=== PATIENT | male | born 1950 | race Hispanic/Latino ===

== ENCOUNTER 2017-03-16 10:52 | Emergency (ER) | payer MEDICARE, BC ==
[2017-03-16 11:03] VITALS: BP 158/84; PULSE 83; RESP 20; TEMP 98.4; O2SAT 98
--- NOTE | 2017-03-16 11:13 | ED PDOC ---
HPI: General Adult Time Seen by Provider: 03/16/17 11:11 Chief Complaint (Nursing): Upper Extremity Problem/Injury Chief Complaint (Provider): shoulder pain History Per: Patient (66 y/o male with h/o chronic pain from degenerative spinal disease and is under care of Dr. Townsend. States he is unable to make appointment with him today due canceled appointment and need rx for the weekend for oxycontin and mscontin.) Past Medical History Reviewed: Historical Data, Nursing Documentation, Vital Signs Vital Signs: Last Vital Signs Temp 98.4 F 03/16/17 11:03 Pulse 83 03/16/17 11:03 Resp 20 03/16/17 11:03 BP 158/84 H 03/16/17 11:03 Pulse Ox 98 03/16/17 11:03 - Family History Family History: States: No Known Family Hx - Home Medications Home Medications: Ambulatory Orders Medication Instructions Recorded Naproxen [Naprosyn Tab] 375 mg PO Q8 PRN #15 tab 03/16/17 - Allergies Allergies/Adverse Reactions: Allergies Allergy/AdvReac Type Severity Reaction Status Date / Time No Known Allergies Allergy Verified 03/16/17 11:11 Review of Systems ROS Statement: Except As Marked, All Systems Reviewed And Found Negative Physical Exam - Reviewed Nursing Documentation Reviewed: Yes Vital Signs Reviewed: Yes - Physical Exam Appears: Positive for: Well, Non-toxic, No Acute Distress Head Exam: Positive for: ATRAUMATIC, NORMAL INSPECTION, NORMOCEPHALIC Skin: Positive for: Normal Color, Warm, DRY Eye Exam: Positive for: EOMI, Normal appearance, PERRL ENT: Positive for: Normal ENT Inspection Neck: Positive for: Normal, Painless ROM Cardiovascular/Chest: Positive for: Regular Rate, Rhythm Respiratory: Positive for: CNT, Normal Breath Sounds Gastrointestinal/Abdominal: Positive for: Normal Exam, Bowel Sounds, Soft Back: Positive for: Normal Inspection Extremity: Positive for: Normal ROM Neurologic/Psych: Positive for: Alert, Oriented - ECG O2 Sat by Pulse Oximetry: 98 Disposition - Clinical Impression Clinical Impression: Shoulder pain - Patient ED Disposition Is Patient to be Admitted: No - Disposition Disposition: Routine/Home Disposition Time: 11:13 Condition: FAIR Prescriptions: Naproxen [Naprosyn Tab] 375 mg PO Q8 PRN #15 tab PRN Reason: Pain, Severe (8-10) Instructions: Chronic Pain (ED)
== END 2017-03-16 12:08 | disposition home or self-care (01) ==
LOC: H.ER 10:52
DX: G89.29 Other chronic pain (principal)

== ENCOUNTER 2017-06-06 11:00 | Day surgery (SDC) | payer MEDICARE, BC ==
[2017-06-06 11:54] VITALS: BMI 26.2
[2017-06-06] MEDS ORDERED: Iohexol 300 10 ML ONE (12:13)
[2017-06-06] MEDS ORDERED: Lidocaine 1% Inj (20ml) ONE (12:13)
[2017-06-06] MEDS ORDERED: MethylPREDNISolone Depo 40 mg/ml Inj ONE (12:13)
[2017-06-06] MEDS ORDERED: Bupivacaine HCl 0.5% PF (10 ml) Inj ONE (12:13)
[2017-06-06] MEDS ORDERED: Lactated Ringer's 1,000 ML IV ONE (12:20)
[2017-06-06] MEDS ORDERED: Midazolam 2 MG/2 ML VIAL ONE (12:22)
[2017-06-06] MEDS ORDERED: Lidocaine 1% Inj (20ml) IJ ONE (12:25)
[2017-06-06] MEDS ORDERED: Bupivacaine HCl 0.25% PF (10 ml) Inj IJ ONE (12:25)
[2017-06-06] MEDS ORDERED: Iohexol 300 10 ML IJ ONE (12:25)
[2017-06-06] MEDS ORDERED: methylPREDNISolone Depo 80 mg/ml Inj IM ONE (12:25)
[2017-06-06] MEDS ORDERED: Lactated Ringer's 500 ML IV ONE (12:35)
[2017-06-06] MEDS ORDERED: Lactated Ringer's 1,000 ML IV SCH (13:15)
[2017-06-06 13:47] VITALS: BP 145/71; PULSE 55; RESP 18; TEMP 98.4; O2SAT 100
--- NOTE | 2017-06-06 23:05 | OP ---
PROCEDURE DATE: 06/06/2017 PREOPERATIVE DIAGNOSIS: Right frozen shoulder. POSTOPERATIVE DIAGNOSIS: Right frozen shoulder. PROCEDURE: Right glenohumeral joint injection under fluoroscopic guidance and also right suprascapular nerve block under fluoroscopy. SURGEON: Nguyen Townsend M.D. TYPE OF ANESTHESIA: Monitored anesthesia care. ANESTHESIA ADMINISTERED BY: Dr. Starks. COMPLICATIONS: None. SPECIMEN: None. DESCRIPTION OF PROCEDURE: As follows, after we had a discussion of the procedure with the patient including its risks, benefits, alternative, outcome data, and possibility of no effect or increased pain, patient consented to the procedure. He denies any recent infections, bleeding tendencies or being on anticoagulants. A decision was then made to proceed to the OR. The patient was placed on a fluoroscopy table in a prone position with two pillows underneath his abdomen. The head and neck was placed in a head positioner. The right arm was placed at the side of his torso. The posterior surface area was then cleaned with alcohol and sterile condition was observed throughout the procedure. Under fluoroscopic guidance, the right shoulder joint was visualized. The targeted area for the needle placement was at the 11 o'clock position of the right humeral head. The skin overlying this area was infiltrated with 1% lidocaine using 25-gauge needle. Subsequently, a 22-gauge 3-1/2-inch spinal needle was then incrementally advanced under fluoroscopic guidance until bony contact was made with the target. After negative aspiration, approximately 0.5 mL of Isovue contrast was injected demonstrating contrast spread in the joint capsule. At this point, approximately 5 mL of 0.5% Marcaine and Depo-Medrol mixture was injected. The needle was then removed. Then, the right suprascapular nerve block was performed. The target of the needle is at the suprascapular notch. The target was then visualized on the anterior posterior view fluoroscopy. The skin overlying the target was infiltrated with 1% lidocaine using 25-gauge needle. Then, a 25-gauge 3-1/2-inch spinal needle then inserted perpendicularly to the skin until bony contact was made with the suprascapular notch. Bony contact was maintained throughout the procedure and care was taken to not advance the needle more than 0.5 mm anterior to the ischial spine. After appropriate placement of the needle, approximately 4 mL of 0.5% Marcaine and Depo-Medrol mixture was injected. At the end of the case, the patient's shoulder was cleaned and dried and bandages were applied. The patient was then transferred to recovery area in good conditions without any signs of [employer] toxicity or any neurological deficits. He will have a followup in our office in approximately 2-4 weeks. En-Compa Townsend MD
== END 2017-06-06 14:20 | disposition home or self-care (01) ==
LOC: H.OPSURG 11:00
PROVIDERS: ATTEND Anesthesiology
DX: M75.01 Adhesive capsulitis of right shoulder (principal); I10 Essential (primary) hypertension
CPT/HCPCS: 20610; J1030; J1040; J2250; J3010; J7120; Q9967